=== PATIENT | male | born 1995 | race Caucasian/White ===

== ENCOUNTER 2017-06-20 11:03 | Outpatient (CLI) | payer OTHER | END 2017-06-20 11:04 | disposition home or self-care (01) | LOC: SC 11:03 | PROVIDERS: ATTEND Internal Medicine Pulmonary Disease | DX: R06.83 Snoring (principal); G47.9 Sleep disorder, unspecified | CPT/HCPCS: 99203; 99212 ==

== ENCOUNTER 2017-08-11 22:16 | Outpatient (CLI) | payer OTHER | END 2017-08-11 22:17 | disposition home or self-care (01) | LOC: SC 22:16 | PROVIDERS: ATTEND Internal Medicine Pulmonary Disease | DX: R53.83 Other fatigue (principal); R06.83 Snoring | CPT/HCPCS: 95810 ==

== ENCOUNTER 2018-06-01 16:20 | Emergency (ER) | payer OTHER ==
--- NOTE | 2018-06-01 17:32 | XRAY Report ---
Reason: Rolled right ankle. Procedure Date: 06/01/2018 Accession Number: [id number] / [id number] Procedure: XR - Ankle 3 View RT CPT Code: FULL RESULT: EXAM: RIGHT ANKLE RADIOGRAPHY EXAM DATE: 06/01/2018 05:27 PM. CLINICAL HISTORY: Rolled right ankle. COMPARISON: None. TECHNIQUE: 3 views. FINDINGS: Bones: Normal. No fractures or bone lesions. Joints: Normal. No effusion. No subluxations. The ankle mortise is normally aligned. Soft Tissues: Normal. No soft tissue swelling. IMPRESSION: Normal ankle radiography. [facility]
--- NOTE | 2018-06-01 17:43 | ED Physician Documentation ---
PD HPI LOWER EXT INJURY - Stated complaint Stated Complaint: ANKLE PAIN - Chief complaint Chief Complaint: Ext Problem - History obtained from History obtained from: Patient - History of Present Illness PD HPI LOW EXT INJURY LOCATION: Right, Ankle Type of injury: Twist Where injury occurred: Other (gym) Timing - onset: How many minutes ago (30) Worsened by: Other (Weightbearing) Associated symptoms: Swelling Similar symptoms before: Has not had sx before - Additional information Additional information: The patient is a 22-year-old [employer] male who presents with right ankle pain. He "rolled" his right ankle while playing volleyball about one half hour prior to arrival. He denies any other injuries. Review of Systems Skin: denies: Rash Musculoskeletal: reports: Joint pain (Right ankle.). denies: Back pain Neurologic: denies: Focal weakness, Numbness PD PAST MEDICAL HISTORY - Past Medical History Past Medical History: No Respiratory: None Endocrine/Autoimmune: None - Past Surgical History Past Surgical History: No - Allergies Allergies/Adverse Reactions: Allergies Allergy/AdvReac Type Severity Reaction Status Date / Time No Known Drug Allergies Allergy Verified 06/01/18 16:24 - Social History Does the pt smoke?: No Smoking Status: Never smoker Does the pt drink ETOH?: Yes Does the pt have substance abuse?: No - Immunizations Immunizations are current?: Yes - POLST Patient has POLST: No PD ED PE NORMAL - Vitals Vital signs reviewed: Yes (Initially hypertensive.) - General General: Alert and oriented X 3, Well developed/nourished - HEENT HEENT: Atraumatic - Respiratory Respiratory: No respiratory distress - Derm Derm: No rash - Extremities Extremities: No edema, No calf tenderness / cord, Other (There is tenderness to palpation at the lateral malleolus of the right ankle, more anteriorly than posteriorly. There is no tenderness to palpation at the posterior aspect of the medial malleolus, the posterior malleolus, the fifth metatarsal base, or the proximal fibula. Distal neurovascular is intact.) - Neuro Neuro: Alert and oriented X 3, No motor deficit, No sensory deficit Results - Vitals Vitals: Oxygen O2 Source Room air - Rads (name of study) right ankle Radiology: Prelim report reviewed, EMP read contemporaneously, See rad report (Normal ankle radiography.) Procedures - Splint (location) right ankle Splint applied by: Tech Type of splint: Ankle airsplint Other: Patient tolerated well, No complications, Neurovascular intact, Crutches provided PD MEDICAL DECISION MAKING - ED course Complexity details: reviewed results, re-evaluated patient, considered differential, d/w patient ED course: The patient's presentation is most consistent with right ankle sprain. There is no evidence of fracture seen on x-ray examination. Treatment in the emergency department included application of an ankle air splint, and administration of ibuprofen 800 mg orally. Crutches were dispensed. I discussed with him the expected course of injury, symptomatic treatment and outpatient follow-up, as well as potentially worrisome signs or symptoms that should prompt reevaluation in the emergency department. Departure - Departure Disposition: 01 Home, Self Care Clinical Impression: Right ankle sprain Qualifiers: Encounter type: initial encounter Involved ligament of ankle: anterior talofibular ligament Qualified Code(s): S93.491A - Sprain of other ligament of right ankle, initial encounter Condition: Stable Instructions: ED Sprain Ankle W X Ray Follow-Up: GIDEON PELAYO [Physician No Access] - Comments: Keep your injured leg elevated as much of the time as possible. Apply ice pack to the injured area intermittently for the next 3 days. You can use ibuprofen, up to 800 mg 3 times daily for its anti-inflammatory effect. Let pain be your guide to activity level. Follow up with your primary physician within 2 weeks if not starting to improve. Call to schedule a follow-up appointment. Return to the emergency department if you develop markedly increasing pain, or otherwise worsening symptoms. Discharge Date/Time: 06/01/18 18:30
[2018-06-01] MEDS ORDERED: IBUPROFEN 800 MG TABLET PO STA (17:44)
[2018-06-01 18:12] VITALS: BP 130/78
== END 2018-06-01 18:30 | disposition home or self-care (01) ==
LOC: EDUNIT# → ED 16:20
DX: S93.491A Sprain of other ligament of right ankle, initial encounter (principal); X50.1XXA Overexertion from prolonged static or awkward postures, initial encounter; Y93.68 Activity, volleyball (beach) (court); Y92.39 Other specified sports and athletic area as the place of occurrence of the external cause
CPT/HCPCS: 73610; 99283; A9270